=== PATIENT | female | born 1985 | race Caucasian/White ===

== ENCOUNTER 2024-07-22 10:06 | Outpatient (AMB) | payer MEDICAID, SELFPAY ==
[2024-07-22 10:41] VITALS: BP 124/79; PULSE 67; RESP 18; TEMP 36.8; O2SAT 95; BMI 40.3
--- NOTE | 2024-07-22 10:41 | ACNOTE_ITS ---
Vital Signs 07/22/24 10:41 Height 1.55 m Height Method Stated Weight 96.842 kg Weight Measurement Method Standing Scale BMI 40.3 BP 124/79 Blood Pressure Source Automatic Cuff Blood Pressure Location Right Upper Arm Position Sitting Respiration 18 Pulse 67 Pulse Source Monitor Temp 98.2 F Temp Source Temporal Artery Scan Pulse Oximetry (%) 95 Oxygen Delivery Method Room Air Allergies/Meds Allergies & Medications Allergies No Known Allergies Allergy (Verified 07/22/24 10:41) Medication Reconciliation No Known Home Medications 07/22/24 [History Confirmed 07/22/24] MA Intake Visit Data Collection New Patient or Established: New Patient (never been to [facility]) Seen by Clinical Staff ONLY (RN/MA): No Pain Present Currently: No Pain scale:: 0 Pain Scale Used: ZarcoAleksandr/Numerical Chemical Plant Worker Required: No PCP or OBGYN visit in last 3 months: No Hx Now: No Do You Feel Safe at Home: Yes Authorities Contacted: N/A Smoking Status Smoking Status: Never smoker Immunization / Flu Flu Vaccine in the Last 12 Months: No Flu Vaccine Exclusion Criteria: No Exclusion Criteria Past Medical History Social History SMOKING STATUS: Smoking status: Never smoker Patient Portal Questionaires Social History Tobacco History Smoking Status: Never smoker Domestic Abuse History Do You Feel Safe at Home: Yes Review of Systems Report any current symptoms Only answer those that you have currently: Past Medical History Past Medical History Have you ever been diagnosed with any of the following: History of Present Illness HPI Narrative This is a 39-year-old female with no past medical history who came to the [facility] to establish care as a new patient. Blood pressure in the office 124/79, heart rate 67 saturating 100% on room air, with BMI in the 40s. Patient has no active complaints however she does have family history of diabetes, hypertension would like to establish care to prevent complications from these chronic diseases. Ordered CBC, CMP, TSH, lipid panel, A1c and will see the patient in 1 week for follow-up. Objective/Exam Narrative Physical exam: Physical Exam GENERAL: NAD, AAOx3, obese HEENT: Moist mucosa. Eyes open, symmetrical, & clear CARDIO: Heart RRR, no obvious murmurs PULM: No noted coughing/dyspnea CTA B/L, no R/W/R GI: Abdomen soft, nondistended, no pain on palpation. BSx4 SKIN/MSK/EXT: No wounds/rashes/edema/amputations, no pain on palpation. Pedal pulses present B/L NEURO: AAOx3, no focal neuro deficits, able to move all 4 extremities Assessment & Plan Diagnosis / Problem List (1) Encounter to establish care: Status: Acute Plan: Ordered CBC, CMP, lipid panel, TSH, A1c will follow-up with 1 week for results. Orders: Orders Comprehensive Metabolic Panel Today Z76.89 - Persons encountering health services in other specified circumstances Ambulatory Hemoglobin A1C Today Z76.89 - Persons encountering health services in other specified circumstances CBC Today Z76.89 - Persons encountering health services in other specified circumstances Lipid Panel Today Z76.89 - Persons encountering health services in other specified circumstances Thyroid Stimulating Hormone Today Z76.89 - Persons encountering health services in other specified circumstances Office Procedures [facility] Level of Care Nursing/Assessment Patient Status: Initial/New Patient Nursing Assessment/Reassessment: Medication Reconciliation, Update PMH in EMR and Vital Signs Coordination of Care: Complex Care and Chronic Disease 1-5, Consent,records obtained, informed consent, Education Simp Pt/Fam, Lab and Imaging orders and Staff clarify orders New Patient Charge New Patient Point Assignment: 1099 New Patient Point Charge: HEADING REPAIRER Level 3 ([id number])
== END 2024-07-22 11:27 | disposition home or self-care (01) ==
LOC: HODAHC 10:06
PROVIDERS: Supervising Provider Internal Medicine; Visit Provider Student in an Organized Health Care Education/Training Program
DX: Z76.89 Persons encountering health services in other specified circumstances (principal); Z83.3 Family history of diabetes mellitus; Z82.49 Family history of ischemic heart disease and other diseases of the circulatory system; E66.9 Obesity, unspecified; Z68.41 Body mass index [BMI] 40.0-44.9, adult
CPT/HCPCS: 99203; G0463

== ENCOUNTER 2024-07-29 11:05 | Outpatient (AMB) | payer MEDICAID, SELFPAY ==
[2024-07-29 11:08] VITALS: BP 119/74; PULSE 74; RESP 18; TEMP 36.8; O2SAT 98; BMI 40.4
--- NOTE | 2024-07-29 11:08 | ACNOTE_ITS ---
Vital Signs 07/29/24 11:08 Height 1.55 m Height Method Stated Weight 97.182 kg Weight Measurement Method Standing Scale BMI 40.4 BP 119/74 Blood Pressure Source Automatic Cuff Blood Pressure Location Right Upper Arm Position Sitting Respiration 18 Pulse 74 Pulse Source Monitor Temp 98.2 F Temp Source Temporal Artery Scan Pulse Oximetry (%) 98 Oxygen Delivery Method Room Air Allergies/Meds Allergies & Medications Allergies No Known Allergies Allergy (Verified 07/29/24 11:09) Medication Reconciliation tirzepatide (weight loss) 2.5 mg/0.5 mL subcutaneous pen injector (Zepbound) 2.5 mg (0.5 mL) subcut QWEEK 1 month #2.5 mL 07/29/24 [Rx] triamcinolone acetonide 0.5 % topical cream 1 applic topical QDAY #15 grams 07/29/24 [Rx] MA Intake Visit Data Collection New Patient or Established: Established Patient (seen at [facility] within 3 years) Seen by Clinical Staff ONLY (RN/MA): No Pain Present Currently: No Pain scale:: 0 Pain Scale Used: Zarco-Lehman/Numerical Aoc Director Combat Operations Officer Required: No PCP or OBGYN visit in last 3 months: No Hx Now: No Do You Feel Safe at Home: Yes Authorities Contacted: N/A Smoking Status Smoking Status: Never smoker Immunization / Flu Flu Vaccine in the Last 12 Months: No Flu Vaccine Exclusion Criteria: No Exclusion Criteria Past Medical History Social History SMOKING STATUS: Smoking status: Never smoker Patient Portal Questionaires Social History Tobacco History Smoking Status: Never smoker Domestic Abuse History Do You Feel Safe at Home: Yes Review of Systems Report any current symptoms Only answer those that you have currently: Past Medical History Past Medical History Have you ever been diagnosed with any of the following: History of Present Illness HPI Narrative This is a 39-year-old female with no past medical history who came to the [facility] to establish care as a new patient. Blood pressure in the office 124/79, heart rate 67 saturating 100% on room air, with BMI in the 40s. Patient has no active complaints however she does have family history of diabetes, hypertension would like to establish care to prevent complications from these chronic diseases. Ordered CBC, CMP, TSH, lipid panel, A1c and will see the patient in 1 week for follow-up. 07/29/2024: Patient here for follow-up visit at the [facility]. Vitals and labs reviewed noted the patient is prediabetic with an A1c of 6.4 and has BMI above 40 shared decision making was made with the patient was presented with options as patient has already tried diet and exercise we will prescribe Zepbound 2.5 weekly. Additionally patient has a rash in the right upper extremity on the thumb scaly and Plake like partially treated differentials include eczema versus psoriasis will prescribe triamcinolone 5% topical and will reevaluate in 1 month for improvement of rash and weight loss. Objective/Exam Narrative Physical exam: Physical Exam GENERAL: NAD, AAOx3, obese, BMI>40 HEENT: Moist mucosa. Eyes open, symmetrical, & clear CARDIO: Heart RRR, no obvious murmurs PULM: No noted coughing/dyspnea CTA B/L, no R/W/R GI: Abdomen soft, nondistended, no pain on palpation. BSx4 SKIN/MSK/EXT: No wounds/rashes/edema/amputations, no pain on palpation. Pedal pulses present B/L NEURO: AAOx3, no focal neuro deficits, able to move all 4 extremities Assessment & Plan Diagnosis / Problem List (1) Psoriasis: Status: Acute Plan: ddx includes eczema vs psoriasis as patients rash is partially treated rash is plaquy, flaky, itchy used to be in B/L UE, now localized to RUE in the thumb region will treat as psoriasis at this time with triamcinolone5% topical (2) Pre-diabetes: Status: Acute Plan: Patient with A1c of 6.4, and BMI> 40 Patient is adherent to exercise and diet, however has not had much improvement in BMI, given the patients family history with diabetes and other comorbidities and refractory to diet and exercise will prescribe Zepbound 2.5 for 1 month and will reevaluate if tolerated. Office Procedures [facility] Level of Care Nursing/Assessment Patient Status: Established Patient Nursing Assessment/Reassessment: Medication Reconciliation, Update PMH in EMR and Vital Signs Coordination of Care: Complex Care and Chronic Disease 1-5, Consent,records obtained, informed consent, Education Simp Pt/Fam, Results/Orders obtained and Staff clarify orders Established Patient Charge Established Patient Point Assignment: 90 Established Patient Point Charge: Level 3 (80-115)
== END 2024-07-29 11:57 | disposition home or self-care (01) ==
LOC: HODAHC 11:05
PROVIDERS: Supervising Provider Internal Medicine; Visit Provider Student in an Organized Health Care Education/Training Program
DX: R73.03 Prediabetes (principal); L40.9 Psoriasis, unspecified
CPT/HCPCS: 99213; G0463

== ENCOUNTER 2024-09-20 14:53 | Outpatient (AMB) | payer MEDICAID, SELFPAY ==
[2024-09-20 15:00] VITALS: BP 132/84; PULSE 72; RESP 19; TEMP 36.7; O2SAT 96; BMI 37.8
--- NOTE | 2024-09-20 15:00 | PD.RESCLINIC ---
Vital Signs 09/20/24 15:00 Height 1.55 m Height Method Stated Weight 90.832 kg Weight Measurement Method Standing Scale BMI 37.8 BP 132/84 H Blood Pressure Source Automatic Cuff Blood Pressure Location Right Upper Arm Position Sitting Respiration 19 Pulse 72 Pulse Source Monitor Temp 98.0 F Temp Source Temporal Artery Scan Pulse Oximetry (%) 96 Oxygen Delivery Method Room Air Allergies/Meds Allergies & Medications Allergies No Known Allergies Allergy (Verified 07/29/24 11:09) MA Intake Visit Data Collection New Patient or Established: Established Patient (seen at [facility] [place] within 3 years) Seen by Clinical Staff ONLY (RN/MA): No Reason for Visit:: FOLLOW UP Pain Present Currently: No Auto Winder Required: No PCP or OBGYN visit in last 3 months: Yes Date of Last PCP or OBGYN visit: 07/29/24 Do You Feel Safe at Home: Yes Authorities Contacted: N/A Smoking Status Smoking Status: Never smoker Immunization / Flu Flu Vaccine in the Last 12 Months: Yes Flu Vaccine Exclusion Criteria: Already Received Past Medical History Social History SMOKING STATUS: Smoking status: Never smoker Travel Risk Travel Hx Recent Travel: No Patient Portal Questionaires Social History Tobacco History Smoking Status: Never smoker Domestic Abuse History Do You Feel Safe at Home: Yes Review of Systems Report any current symptoms Only answer those that you have currently: Past Medical History Past Medical History Have you ever been diagnosed with any of the following: History of Present Illness HPI Narrative This is a 39-year-old female with no past medical history who came to the [facility] to establish care as a new patient. Blood pressure in the office 124/79, heart rate 67 saturating 100% on room air, with BMI in the 40s. Patient has no active complaints however she does have family history of diabetes, hypertension would like to establish care to prevent complications from these chronic diseases. Ordered CBC, CMP, TSH, lipid panel, A1c and will see the patient in 1 week for follow-up. 07/29/2024: Patient here for follow-up visit at the [facility]. Vitals and labs reviewed noted the patient is prediabetic with an A1c of 6.4 and has BMI above 40 shared decision making was made with the patient was presented with options as patient has already tried diet and exercise we will prescribe Zepbound 2.5 weekly. Additionally patient has a rash in the right upper extremity on the thumb scaly and Plake like partially treated differentials include eczema versus psoriasis will prescribe triamcinolone 5% topical and will reevaluate in 1 month for improvement of rash and weight loss. 09/20/2024 : pt is seen for followup, reported no active complaints, on Trizepetide 2.5 mg. tolerated well, 14 lb weight loss acheived in one month , reported improvement in energy levels, excited to advance dose to next step. will send a prescription for 5mg, weekly. Pt is also working on pursuing an active lifestyle, joined a gym and goes for workout more frequently now. Will followup with a1c in 6 months. No abdominal pain, chest pain or dyspnea reported. Review of Systems Review of Systems Narrative Review of Systems: General: Denies fevers or chills HEENT: Denies congestion or sore throat Heart: Denies chest pain or palpitations Lungs: Denies shortness of breath or cough Abdomen: Denies diarrhea, nausea, vomiting, constipation, bright red blood per rectum or melena Genitourinary: Denies frequency, urgency, dysuria, or hematuria Musculoskeletal: Denies joint pain, denies muscular pain Neurology: Denies any numbness, tingling Review of systems otherwise negative except what is mentioned above. Objective/Exam Narrative Physical exam: Physical Exam GENERAL: NAD, AAOx3, obese, HEENT: Moist mucosa. Eyes open, symmetrical, & clear CARDIO: Heart RRR, no obvious murmurs PULM: No noted coughing/dyspnea CTA B/L, no R/W/R GI: Abdomen soft, nondistended, no pain on palpation. BSx4 SKIN/MSK/EXT: No wounds/rashes/edema/amputations, no pain on palpation. Pedal pulses present B/L NEURO: AAOx3, no focal neuro deficits, able to move all 4 extremities Assessment & Plan Diagnosis / Problem List (1) Pre-diabetes: Status: Acute Plan: Patient with A1c of 6.4, and BMI> 40 Patient is adherent to exercise and diet, however has not had much improvement in BMI, given the patients family history with diabetes and other comorbidities and refractory to diet and exercise will prescribe Zepbound 2.5 for 1 month and will reevaluate if tolerated. Improvemnt in weight, 14lb weight loss acheived, tolerated medicne well, will increase dose to 5 mg weekly, counselled regarding increase risk of pancreatitis and abdominal symptoms, pt is aware and continues to stay abstinant from alcohol. BMI now 37.8 (2) BMI greater than 40: Status: Acute (3) Psoriasis: Status: Acute Plan: ddx includes eczema vs psoriasis as patients rash is partially treated rash is plaquy, flaky, itchy used to be in B/L UE, now localized to RUE in the thumb region will treat as psoriasis at this time with triamcinolone5% topical reported improvement in symtoms, rash now clearing up, no scaly patches noted, pink erythematous skin, that is not itchy. on dosral aspect of both hand close to thumbs. - continue with triamcinolone5% topical Plan Plan of care discussed with attending dr Kelle Diaz pgy 3 Office Procedures [facility] Level of Care Nursing/Assessment Patient Status: Established Patient Nursing Assessment/Reassessment: BP Monitoring, Medication Reconciliation, Update PMH in EMR and Vital Signs Coordination of Care: Complex Care and Chronic Disease 1-5, Consent,records obtained, informed consent, Lab and Imaging orders and Results/Orders obtained Established Patient Charge Established Patient Point Assignment: 95 Established Patient Point Charge: EP Level 3 (80-115)
== END 2024-09-20 15:13 | disposition home or self-care (01) ==
LOC: HODAHC 14:53
PROVIDERS: Supervising Provider Student in an Organized Health Care Education/Training Program; Visit Provider Student in an Organized Health Care Education/Training Program
DX: R73.03 Prediabetes (principal); L40.9 Psoriasis, unspecified; Z83.3 Family history of diabetes mellitus
CPT/HCPCS: 99213; G0463

== ENCOUNTER 2024-10-27 15:02 | Outpatient (AMB) | payer MEDICAID, SELFPAY ==
[2024-10-27 15:15] VITALS: BP 127/89; PULSE 71; RESP 19; TEMP 36.8; O2SAT 96; BMI 36.4
--- NOTE | 2024-10-27 15:15 | PD.RESCLINIC ---
Vital Signs 10/27/24 15:15 Height 1.55 m Height Method Stated Weight 87.6 kg Weight Measurement Method Standing Scale BMI 36.4 BP 127/89 H Blood Pressure Source Automatic Cuff Blood Pressure Location Right Upper Arm Position Sitting Respiration 19 Pulse 71 Pulse Source Monitor Temp 98.2 F Temp Source Temporal Artery Scan Pulse Oximetry (%) 96 Oxygen Delivery Method Room Air Allergies/Meds Allergies & Medications Allergies No Known Allergies Allergy (Verified 07/29/24 11:09) MA Intake Visit Data Collection New Patient or Established: Established Patient (seen at [facility] within 3 years) Seen by Clinical Staff ONLY (RN/MA): No Reason for Visit:: FOLLOW UP Digital Color Press Operator Required: No PCP or OBGYN visit in last 3 months: Yes Date of Last PCP or OBGYN visit: 09/20/24 Hx Now: No Do You Feel Safe at Home: Yes Authorities Contacted: N/A Smoking Status Smoking Status: Never smoker Immunization / Flu Flu Vaccine in the Last 12 Months: No Flu Vaccine Exclusion Criteria: No Exclusion Criteria Past Medical History Social History SMOKING STATUS: Smoking status: Never smoker Patient Portal Questionaires Social History Tobacco History Smoking Status: Never smoker Domestic Abuse History Do You Feel Safe at Home: Yes Review of Systems Report any current symptoms Only answer those that you have currently: Past Medical History Past Medical History Have you ever been diagnosed with any of the following: History of Present Illness HPI Narrative 39-year-old female with past medical history of morbid obesity with assosiated prediabetes and family history of autoimmune disorder (lupus and psoriasis in mother) who has recenttly been started of GLP-1 treatment for diabetes and obesity. Patient states that she has been asymptomatic and denies any concerning GI symptoms. She is satisfied with the rate of her weight loss and would like to increase her Tirzepatide dose. She also had a rash on her bilateral thumbs on last visit which was treated with Triamcinolone 0.5% with improvement in the rash but no complete resolution. She otherwise denies any concerning symptoms and feels generally well. Objective/Exam Narrative Physical exam: Physical Exam: GENERAL: NAD, AAOx3, obese, HEENT: Moist mucosa. Eyes open, symmetrical, & clear CARDIO: Heart RRR, no obvious murmurs PULM: No noted coughing/dyspnea CTA B/L, no R/W/R GI: Abdomen soft, nondistended, no pain on palpation. BSx4 SKIN/MSK/EXT: Bilateral hypopigemented 2 cm skin lesions on thumbs. No wounds/edema/amputations, no pain on palpation. NEURO: AAOx3, no focal neuro deficits, able to move all 4 extremities Assessment & Plan Diagnosis / Problem List (1) Pre-diabetes: Status: Acute Assessment & Plan: Patient with A1c of 6.4, and BMI> 40 On Zepbound 5mg, tolerating well BMI improved to 36.4; has additional 3kg of weight loss since last visit Plan: Will increase Zepbound to 7.5mg and follow-up with repeat A1c (2) BMI greater than 40: Status: Acute Assessment & Plan: As above (3) Psoriasis: Status: Acute Assessment & Plan: Initial differentials included eczema, psoriasis Hx of autoimmune disease in family; can't rule out Vitilgo Rash was initially plaquy, flaky, itchy and B/L - currently hypopigmented with no scaly plaque Treated effectively with Triamcinolone cream Plan: Continue Triamcinolone Will order autoimmune workup and follow-up on next visit Orders: Orders DNA (ds) Antibody* Today L40.9 - Psoriasis, unspecified CHRIS IFA Screen w/refl, IFA* Today L40.9 - Psoriasis, unspecified ANCA Scrn,MPO&PR3,Rflx Titer* Today L40.9 - Psoriasis, unspecified Ambulatory Hemoglobin A1C Today R73.03 - Prediabetes Office Procedures [facility] Level of Care Nursing/Assessment Patient Status: Established Patient Nursing Assessment/Reassessment: Medication Reconciliation, Update PMH in EMR and Vital Signs Coordination of Care: Complex Care and Chronic Disease 1-5, Consent,records obtained, informed consent, Lab and Imaging orders and Results/Orders obtained Established Patient Charge Established Patient Point Assignment: 80 Established Patient Point Charge: Level 3 (80-115)
== END 2024-10-27 16:06 | disposition home or self-care (01) ==
LOC: HODAHC 15:02
DX: R73.03 Prediabetes (principal); E66.01 Morbid (severe) obesity due to excess calories; Z68.36 Body mass index [BMI] 36.0-36.9, adult; L40.9 Psoriasis, unspecified
CPT/HCPCS: 99213; G0463

== ENCOUNTER 2024-12-07 13:21 | Outpatient (AMB) | payer MEDICAID, SELFPAY ==
[2024-12-07 13:32] VITALS: BP 129/88; PULSE 77; RESP 17; TEMP 37; O2SAT 97; BMI 35.7
--- NOTE | 2024-12-07 13:32 | ACNOTE_ITS ---
Vital Signs 12/07/24 13:32 Height 1.55 m Height Method Stated Weight 85.842 kg Weight Measurement Method Standing Scale BMI 35.7 BP 129/88 H Blood Pressure Source Automatic Cuff Blood Pressure Location Right Upper Arm Position Sitting Respiration 17 Pulse 77 Pulse Source Monitor Temp 98.6 F Temp Source Temporal Artery Scan Pulse Oximetry (%) 97 Oxygen Delivery Method Room Air Allergies/Meds Allergies & Medications Allergies No Known Allergies Allergy (Verified 12/07/24 13:33) Medication Reconciliation tirzepatide (weight loss) 10 mg/0.5 mL subcutaneous pen injector (Zepbound) 10 m g (0.5 mL) subcut QWEEK #2 mL 12/07/24 [Rx] triamcinolone acetonide 0.5 % topical cream 1 applic topical QDAY #15 grams 12/07/24 [Rx] MA Intake Visit Data Collection New Patient or Established: Established Patient (seen at [facility] within 3 years) Seen by Clinical Staff ONLY (RN/MA): No Reason for Visit:: FOLLOW UP Pain scale:: 0 Pain Scale Used: Zarco-Lehman/Numerical [employer] Installer Required: No PCP or OBGYN visit in last 3 months: Yes Date of Last PCP or OBGYN visit: 10/27/24 Hx Now: No Do You Feel Safe at Home: Yes Authorities Contacted: N/A Smoking Status Smoking Status: Never smoker Immunization / Flu Flu Vaccine in the Last 12 Months: No Flu Vaccine Exclusion Criteria: No Exclusion Criteria Past Medical History Social History SMOKING STATUS: Smoking status: Never smoker SECOND HAND EXPOSURE: second hand exposure: No ALCOHOL: Alcohol Intake: Never HOUSING: Housing: House Patient Portal Questionaires PHQ-9 PHQ-2 Over the last 2 weeks, how often have you been bothered by any of the following problems? 1. Little interest or pleasure in doing things: not at all 2. Feeling down, depressed, or hopeless: not at all Total score: 0 PHQ-9 3. Trouble falling or staying asleep, or sleeping too much: Not at all 4. Feeling tired or having little energy: Not at all 5. Poor appetite or overeating: Not at all 6. Feeling bad about yourself - or that you are a failure or have let yourself or your family down: Not at all 7. Trouble concentrating on things, such as reading the newspaper or watching television: Not at all 8. Moving or speaking so slowly that other people could have noticed? - Or the opposite - being so fidgety or restless that you have been moving around a lot more than usual: not at all 9. Thoughts that you would be better off or of hurting yourself in some way: Not at all Total score: 0 If you checked off any problems, how difficult have these problems made it for you to do your work, take care of things at home, or get along with other people?: not difficult at all Source: Developed by Drs. Prosper Verdugo, Ese Lopez, Berhane Saeed and colleagues, with an educational jack from [employer]. Depression screen completed yes Social History Living Situation History Marital Status: Unknown Lives With: Family Housing: House Tobacco History Smoking Status: Never smoker Second Hand Smoke Exposure: No Alcohol History Alcohol Intake: Never Domestic Abuse History Do You Feel Safe at Home: Yes Review of Systems Report any current symptoms Only answer those that you have currently: Past Medical History Past Medical History Have you ever been diagnosed with any of the following: History of Present Illness HPI Narrative This is a 39-year-old female with no past medical history who came to the [facility] to establish care as a new patient. Blood pressure in the office 124/79, heart rate 67 saturating 100% on room air, with BMI in the 40s. Patient has no active complaints however she does have family history of diabetes, hypertension would like to establish care to prevent complications from these chronic diseases. Ordered CBC, CMP, TSH, lipid panel, A1c and will see the patient in 1 week for follow-up. 07/29/2024: Patient here for follow-up visit at the [facility]. Vitals and labs reviewed noted the patient is prediabetic with an A1c of 6.4 and has BMI above 40 shared decision making was made with the patient was presented with options as patient has already tried diet and exercise we will prescribe Zepbound 2.5 weekly. Additionally patient has a rash in the right upper extremity on the thumb scaly and Plake like partially treated differentials include eczema versus psoriasis will prescribe triamcinolone 5% topical and will reevaluate in 1 month for improvement of rash and weight loss. 09/20/2024 : pt is seen for followup, reported no active complaints, on Trizepetide 2.5 mg. tolerated well, 14 lb weight loss acheived in one month , reported improvement in energy levels, excited to advance dose to next step. will send a prescription for 5mg, weekly. Pt is also working on pursuing an active lifestyle, joined a gym and goes for workout more frequently now. Will followup with a1c in 6 months. No abdominal pain, chest pain or dyspnea reported. 10/27/2024: 39-year-old female with past medical history of morbid obesity with assosiated prediabetes and family history of autoimmune disorder (lupus and psoriasis in mother) who has recenttly been started of GLP-1 treatment for diabetes and obesity. Patient states that she has been asymptomatic and denies any concerning GI symptoms. She is satisfied with the rate of her weight loss and would like to increase her Tirzepatide dose. She also had a rash on her bilateral thumbs on last visit which was treated with Triamcinolone 0.5% with improvement in the rash but no complete resolution. She otherwise denies any concerning symptoms and feels generally well. 12/07/2024: Patient seen for followup. Patient is doing well with Tirzepatide 7.5 mg. Patient BMI decreased from 36.4 to 35.7 and reports no known side effects with the increased dose. No labs available for this visit as the patient forgot to do labs until this morning. The patient plans to follow up with a phone call visit to go over her labs. Patient also states that she has had significant improvement of her skin rashes on her hands with the prescribed triamcinolone. Review of Systems Review of Systems Systems Reviewed: All systems reviewed, normal except as documented Objective/Exam Narrative Physical exam: Physical Exam: General: Alert, no acute distress. Skin: Warm, dry, intact. Head: Normocephalic, atraumatic. Eye: Normal conjunctiva, PERRL. Cardiovascular: Regular rate and rhythm, no murmur, +S1/S2. Respiratory: Lungs are clear to auscultation, respirations unlabored, no crackles, no wheezing. Gastrointestinal: Soft, nontender, non-distended. No guarding or rebound tenderness. Extremities: No edema, no cyanosis, no clubbing. 2cm hypopigmented plaques with punctate hemorrhage in center on skin over MCP of thumb bilaterally. Neuro: No focal deficits observed. Conversant, moving all extremities. No overt cerebellar signs/incoordination. Psychiatric: Cooperative, appropriate affect. Assessment & Plan Diagnosis / Problem List (1) Pre-diabetes: Status: Acute Assessment & Plan: Patient with A1c of 6.4 during previous visit, and presented initially with BMI> 40 Will follow up on A1c from 12/07 lab results when available On Zepbound 7.5mg, tolerating well BMI improved to 35.7 from 36.4 Plan: Will increase Zepbound to 10mg and follow-up with A1c results (2) BMI greater than 40: Status: Acute Assessment & Plan: As above; improved with Zepbound Plan: Increased Zepbound to 10 mg, will decrease back to 7.5 mg if patient not [place] ating side effects Will plan for CBC, CMP, lipid panel, TSH, and A1c next in person visit (3) Psoriasis: Status: Acute Assessment & Plan: Initial differentials included eczema, psoriasis Hx of autoimmune disease in family; can't rule out Vitilgo Rash was initially plaquy, flaky, itchy and B/L - currently hypopigmented with no scaly plaque Treated effectively with Triamcinolone cream Plan: Continue Triamcinolone Will order autoimmune workup (dsDNA, CHRIS, ANCA) and follow-up on next visit; labs not yet available on 12/07 visit, will plan to follow up next appointment Will send referral to dermatology for additional management Plan Patient plan of care was discussed with attending physician Dr. Lorena Powell, PGY1 Orders: Referrals Dermatology Escobar Powell, DO L30.9 - Dermatitis, unspecified, L40.9 - Psoriasis, unspecified Additional Assessment Attending note: Office Procedures [facility] Level of Care Nursing/Assessment Patient Status: Established Patient Nursing Assessment/Reassessment: Medication Reconciliation, Update PMH in EMR and Vital Signs Coordination of Care: Complex Care and Chronic Disease 1-5, Education Complex Pt/Fam, Consent,records obtained, informed consent, Results/Orders obtained and Staff clarify orders Established Patient Charge Established Patient Point Assignment: 95 Established Patient Point Charge: Level 3 (80-115) TB Screening LTBI Screening: Has patient traveled, was born, or resided for at least 1 month, or frequent border crossing into a country with an elevated TB rate: No Immunosuppression, current or planned (HIV, organ transplant, treated with biologic agents, steroids, or other immunosuppression medication): No Close contact to someone with infectious TB disease during lifetime: No Homelessness or incarceration, current or past: No TB testing indicated at this time (at least 1 yes above): No
== END 2024-12-07 13:44 | disposition home or self-care (01) ==
LOC: HODAHC 13:21
PROVIDERS: Supervising Provider Internal Medicine; Visit Provider Internal Medicine
DX: R73.03 Prediabetes (principal); Z79.85 Long-term (current) use of injectable non-insulin antidiabetic drugs; L40.9 Psoriasis, unspecified; E66.01 Morbid (severe) obesity due to excess calories; Z68.35 Body mass index [BMI] 35.0-35.9, adult
CPT/HCPCS: 99213; G0463

== ENCOUNTER 2025-01-11 13:41 | Outpatient (AMB) | payer MEDICAID, SELFPAY ==
[2025-01-11 13:52] VITALS: BP 135/86; PULSE 81; RESP 19; TEMP 36.4; O2SAT 97; BMI 35.2
--- NOTE | 2025-01-11 13:52 | ACNOTE_ITS ---
Vital Signs 01/11/25 13:52 Height 1.55 m Height Method Stated Weight 84.595 kg Weight Measurement Method Standing Scale BMI 35.2 BP 135/86 H Blood Pressure Source Automatic Cuff Blood Pressure Location Right Upper Arm Position Sitting Respiration 19 Pulse 81 Pulse Source Monitor Temp 97.6 F Temp Source Temporal Artery Scan Pulse Oximetry (%) 97 Oxygen Delivery Method Room Air Allergies/Meds Allergies & Medications Allergies No Known Allergies Allergy (Verified 01/11/25 13:53) Medication Reconciliation triamcinolone acetonide 0.5 % topical cream 1 applic topical QDAY #15 grams 0 04/02 [Rx Confirmed 01/11/25] tirzepatide (weight loss) 12.5 mg/0.5 mL subcutaneous pen injector (Zepbound) 12.5 mg (0.5 mL) subcut QWEEK #2 mL 01/11/25 [Rx] MA Intake Visit Data Collection New Patient or Established: Established Patient (seen at [facility] within 3 years) Seen by Clinical Staff ONLY (RN/MA): No Pain Present Currently: No Pain scale:: 0 Pain Scale Used: Zarco-Lehman/Numerical PCP or OBGYN visit in last 3 months: Yes Do You Feel Safe at Home: Yes Authorities Contacted: N/A Smoking Status Smoking Status: Never smoker Immunization / Flu Flu Vaccine in the Last 12 Months: No Flu Vaccine Exclusion Criteria: No Exclusion Criteria Past Medical History Social History SMOKING STATUS: Smoking status: Never smoker SECOND HAND EXPOSURE: second hand exposure: No ALCOHOL: Alcohol Intake: Never HOUSING: Housing: House Patient Portal Questionaires PHQ-9 PHQ-2 Over the last 2 weeks, how often have you been bothered by any of the following problems? 1. Little interest or pleasure in doing things: not at all 2. Feeling down, depressed, or hopeless: not at all Total score: 0 PHQ-9 8. Moving or speaking so slowly that other people could have noticed? - Or the opposite - being so fidgety or restless that you have been moving around a lot more than usual: not at all Source: Developed by Drs. Prosper Verdugo, Ese Lopez, Berhane Saeed and colleagues, with an educational jack from [employer]. Social History Living Situation History Lives With: Family Housing: House Tobacco History Smoking Status: Never smoker Second Hand Smoke Exposure: No Alcohol History Alcohol Intake: Never Domestic Abuse History Do You Feel Safe at Home: Yes Review of Systems Report any current symptoms Only answer those that you have currently: Past Medical History Past Medical History Have you ever been diagnosed with any of the following: History of Present Illness HPI Narrative HPI Narrative This is a 39-year-old female with no past medical history who came to the [facility] to establish care as a new patient. Blood pressure in the office 124/79, heart rate 67 saturating 100% on room air, with BMI in the 40s. Patient has no active complaints however she does have family history of diabetes, hypertension would like to establish care to prevent complications from these chronic diseases. Ordered CBC, CMP, TSH, lipid panel, A1c and will see the patient in 1 week for follow-up. 07/29/2024: Patient here for follow-up visit at the [facility]. Vitals and labs reviewed noted the patient is prediabetic with an A1c of 6.4 and has BMI above 40 shared decision making was made with the patient was presented with options as patient has already tried diet and exercise we will prescribe Zepbound 2.5 weekly. Additionally patient has a rash in the right upper extremity on the thumb scaly and Plake like partially treated differentials include eczema versus psoriasis will prescribe triamcinolone 5% topical and will reevaluate in 1 month for improvement of rash and weight loss. 09/20/2024 : pt is seen for followup, reported no active complaints, on Trizepetide 2.5 mg. tolerated well, 14 lb weight loss acheived in one month , reported improvement in energy levels, excited to advance dose to next step. will send a prescription for 5mg, weekly. Pt is also working on pursuing an acti ve lifestyle, joined a gym and goes for workout more frequently now. Will followup with a1c in 6 months. No abdominal pain, chest pain or dyspnea reported. 10/27/2024: 39-year-old female with past medical history of morbid obesity with assosiated prediabetes and family history of autoimmune disorder (lupus and psoriasis in mother) who has recenttly been started of GLP-1 treatment for diabetes and obesity. Patient states that she has been asymptomatic and denies any concerning GI symptoms. She is satisfied with the rate of her weight loss and would like to increase her Tirzepatide dose. She also had a rash on her bilateral thumbs on last visit which was treated with Triamcinolone 0.5% with improvement in the rash but no complete resolution. She otherwise denies any concerning symptoms and feels generally well. 12/07/2024: Patient seen for followup. Patient is doing well with Tirzepatide 7.5 mg. Patient BMI decreased from 36.4 to 35.7 and reports no known side effects with the increased dose. No labs available for this visit as the patient forgot to do labs until this morning. The patient plans to follow up with a phone call visit to go over her labs. Patient also states that she has had significant improvement of her skin rashes on her hands with the prescribed triamcinolone. 01/11/2025: Patient seen in the office today for follow-up of her lab results from 12/28/2024. Notable labs included an A1c of 5.5 improved from 6.4. She is CHRIS positive speckled pattern 1:160. Patient is doing well with Zepbound 10 at home. She also reports improvement in her rash on the bilateral dorsal surfaces of her thumbs. Review of Systems Review of Systems Narrative Review of Systems: Review of Systems: * General: Denies fevers, chills. * HEENT: Denies headache, congestion, or sore throat. * Cardiac: Denies chest pain or palpitations. * Pulmonary: Denies shortness of breath or cough. * GI: Denies nausea, vomiting, diarrhea, constipation, melena, or hematochezia. * : Denies dysuria, hematuria, frequency, or urgency. * MSK: Pruritus on the dorsal surfaces of the thumbs bilaterally. Denies pain in the extremities, joints, or myalgias. * Neuro: Denies weakness, numbness, vision changes, or speech difficulty. Objective/Exam Narrative Physical exam: General: Awake and in no acute distress. Conversational and non-toxic appearing. Neurologic: GCS 15. Alert and oriented x3, no gross neurological deficit, and patient able to move all 4 extremities. HEENT: Normocephalic, atraumatic, mucous membranes moist. Pupils reactive to light. Heart: Regular rate and rhythm, normal S1 and S2, no murmurs. Lungs: Clear to auscultation bilaterally with no wheezing or crackles. Abdomen: Soft, nondistended, nontender, positive bowel sounds. No guarding or rebound tenderness. Extremities: Approximately 2 cm in diameter scaly rash on the dorsal surfaces of the thumbs bilaterally. Associated flaking. No edema in the extremities. 2+ radial and dorsalis pedis pulses bilaterally. Skin: Warm. Dry. No rash or ecchymoses. Assessment & Plan Diagnosis / Problem List (1) Psoriasis: Status: Acute (2) Eczema: Status: Acute (3) Pre-diabetes: Status: Acute (4) Morbid obesity: Status: Acute Plan 39-year-old female with no significant past medical history but a family history of diabetes and hypertension coming in for follow-up of her lab results and her rash. She is currently on Zepbound and using a topical triamcinolone for her rash on her hands. #Prediabetes (Resolved) #Obesity * Patient previously had an A1c of 6.4, now 5.5 most recently * Patient's BMI was over 40, currently 35.2 * Patient is tolerating Zepbound 10mg well Plan: * Will increase Zepbound to 12mg #Psoriasis versus eczema * Patient has a approximately 2 cm diameter scaly rash on the bilateral dorsal surface of her thumbs * Has improved in size and has become less pruritic with topical triamcinolone * Patient is CHRIS positive Plan: * Considering that 20% of females are CHRIS positive, will not explore further workup * Will continue topical triamcinolone Patient was seen and discussed with my attending physician Dr. Lorena MANTILLA. Jessee Steele DO PGY-1. Office Procedures [facility] Level of Care Nursing/Assessment Patient Status: Established Patient Nursing Assessment/Reassessment: Medication Reconciliation, Update PMH in EMR and Vital Signs Coordination of Care: Complex Care and Chronic Disease 1-5, Complex Care/Chronic Disease 5 or more, Consent,records obtained, informed consent, Lab and Imaging orders, Results/Orders obtained and Staff clarify orders Established Patient Charge Established Patient Point Assignment: 125 Established Patient Point Charge: EP Level 4 (120-155)
== END 2025-01-11 14:51 | disposition home or self-care (01) ==
LOC: HODAHC 13:41
DX: R21 Rash and other nonspecific skin eruption (principal); R76.0 Raised antibody titer; E66.01 Morbid (severe) obesity due to excess calories; Z68.35 Body mass index [BMI] 35.0-35.9, adult; Z83.3 Family history of diabetes mellitus; I10 Essential (primary) hypertension
CPT/HCPCS: 99214; G0463

== ENCOUNTER 2025-02-08 13:16 | Outpatient (AMB) | payer MEDICAID, SELFPAY ==
--- NOTE | 2025-02-08 13:36 | PD.RESCLINIC ---
Vital Signs 02/08/25 13:37 Height 1.55 m Height Method Stated Weight 82.27 kg Weight Measurement Method Standing Scale BMI 34.2 BP 134/89 H Blood Pressure Source Automatic Cuff Blood Pressure Location Left Upper Arm Position Sitting Respiration 18 Pulse 73 Pulse Source Monitor Temp 97.2 F Temp Source Temporal Artery Scan Pulse Oximetry (%) 98 Oxygen Delivery Method Room Air Allergies/Meds Allergies & Medications Allergies No Known Allergies Allergy (Verified 02/08/25 13:37) Medication Reconciliation triamcinolone acetonide 0.5 % topical cream 1 applic topical QDAY #15 grams 12/07/24 [Rx Confirmed 02/08/25] tirzepatide (weight loss) 12.5 mg/0.5 mL subcutaneous pen injector (Zepbound) 15 mg (0.6 mL) subcut QWEEK #2 mL 02/08/25 [Rx] MA Intake Visit Data Collection New Patient or Established: Established Patient (seen at [facility] within 3 years) PCP or OBGYN visit in last 3 months: No Smoking Status Smoking Status: Never smoker Immunization / Flu Flu Vaccine in the Last 12 Months: No Flu Vaccine Exclusion Criteria: No Exclusion Criteria Past Medical History Social History SMOKING STATUS: Smoking status: Never smoker SECOND HAND EXPOSURE: second hand exposure: No ALCOHOL: Alcohol Intake: Never HOUSING: Housing: House Patient Portal Questionaires PHQ-9 PHQ-2 Over the last 2 weeks, how often have you been bothered by any of the following problems? 1. Little interest or pleasure in doing things: not at all PHQ-9 8. Moving or speaking so slowly that other people could have noticed? - Or the opposite - being so fidgety or restless that you have been moving around a lot more than usual: not at all Source: Developed by Drs. Prosper Verdugo, Ese Lopez, Berhane Saeed and colleagues, with an educational jack from [employer]. Social History Living Situation History Lives With: Family Housing: House Tobacco History Smoking Status: Never smoker Second Hand Smoke Exposure: No Alcohol History Alcohol Intake: Never Review of Systems Report any current symptoms Only answer those that you have currently: Past Medical History Past Medical History Have you ever been diagnosed with any of the following: History of Present Illness HPI Narrative This is a 39-year-old female with no past medical history who came to the [facility] to establish care as a new patient. Blood pressure in the office 124/79, heart rate 67 saturating 100% on room air, with BMI in the 40s. Patient has no active complaints however she does have family history of diabetes, hypertension would like to establish care to prevent complications from these chronic diseases. Ordered CBC, CMP, TSH, lipid panel, A1c and will see the patient in 1 week for follow-up. 07/29/2024: Patient here for follow-up visit at the [facility]. Vitals and labs reviewed noted the patient is prediabetic with an A1c of 6.4 and has BMI above 40 shared decision making was made with the patient was presented with options as patient has already tried diet and exercise we will prescribe Zepbound 2.5 weekly. Additionally patient has a rash in the right upper extremity on the thumb scaly and Plake like partially treated differentials include eczema versus psoriasis will prescribe triamcinolone 5% topical and will reevaluate in 1 month for improvement of rash and weight loss. 09/20/2024 : pt is seen for followup, reported no active complaints, on Trizepetide 2.5 mg. tolerated well, 14 lb weight loss acheived in one month , reported improvement in energy levels, excited to advance dose to next step. will send a prescription for 5mg, weekly. Pt is also working on pursuing an active lifestyle, joined a gym and goes for workout more frequently now. Will followup with a1c in 6 months. No abdominal pain, chest pain or dyspnea reported. 10/27/2024: 39-year-old female with past medical history of morbid obesity with assosiated prediabetes and family history of autoimmune disorder (lupus and psoriasis in mother) who has recenttly been started of GLP-1 treatment for diabetes and obesity. Patient states that she has been asymptomatic and denies any concerning GI symptoms. She is satisfied with the rate of her weight loss and would like to increase her Tirzepatide dose. She also had a rash on her bilateral thumbs on last visit which was treated with Triamcinolone 0.5% with improvement in the rash but no complete resolution. She otherwise denies any concerning symptoms and feels generally well. 12/07/2024: Patient seen for followup. Patient is doing well with Tirzepatide 7.5 mg. Patient BMI decreased from 36.4 to 35.7 and reports no known side effects with the increased dose. No labs available for this visit as the patient forgot to do labs until this morning. The patient plans to follow up with a phone call visit to go over her labs. Patient also states that she has had significant improvement of her skin rashes on her hands with the prescribed triamcinolone. 01/11/2025: Patient seen in the office today for follow-up of her lab results from 12/28/2024. Notable labs included an A1c of 5.5 improved from 6.4. She is CHRIS positive speckled pattern 1:160. Patient is doing well with Zepbound 10 at home. She also reports improvement in her rash on the bilateral dorsal surfaces of her thumbs. 02/08/2025: Patient seen in the office today. Patient is doing well with Zepbound 12.5 and she did not get her last dose and planning to take that last 12.5 dose today. She last 2 KG from last visit. Otherwise she has been doing well. And her rash over the right thumb and left hand improved a little from the last time but improved overall the initial visit. Plan for her is to increase her Zepbound to the final 15 mg dosage and to review the HbA1c on next visit. She is doing well with the exercise and caloric cutting. Advised her to continue the same Objective/Exam Narrative Physical exam: General: Awake and in no acute distress. Conversational and non-toxic appearing. Neurologic: GCS 15. Alert and oriented x3, no gross neurological deficit, and patient able to move all 4 extremities. HEENT: Normocephalic, atraumatic, mucous membranes moist. Pupils reactive to light. Heart: Regular rate and rhythm, normal S1 and S2, no murmurs. Lungs: Clear to auscultation bilaterally with no wheezing or crackles. Abdomen: Soft, nondistended, nontender, positive bowel sounds. No guarding or rebound tenderness. Extremities: Approximately 2 cm in diameter scaly rash on the dorsal surfaces of the thumbs bilaterally. No edema in the extremities. 2+ radial and dorsalis pedis pulses bilaterally. Skin: Warm. Dry. No rash or ecchymoses. Assessment & Plan Diagnosis / Problem List (1) Morbid obesity: Status: Acute Assessment & Plan: He is currently on Zepbound 12.5 and then due for the last shot and significantly high weight is decreased by 2 to KG from her last visit. She denies any GI upset or any other complaints from the the bone usage and she has been compliant with the exercise and calorie cutting. Plan: Plan for her is to increase her Zepbound dose to 15 mg and the final dose for the 4 weeks and to review her HbA1c after final Zepbound dose in the next visit. (2) Psoriasis: Status: Acute Assessment & Plan: Her bilateral lesions over the thumbs showing no worsening. They have been slightly improved. She says that it has been significantly improved from the initial visit. Plan: Continue the same management of triamcinolone (3) Pre-diabetes: Status: Acute Assessment & Plan: Her HbA1c on last visit is 5.4 which is decreased from 6.6 from the initial visit. She has been losing weight from Zepbound, exercise, diet Plan: Continue the same management. ?Advised her on healthy life style. Orders: Orders Ambulatory Hemoglobin A1C 03/21/25 Lesvia Lizarraga MD E66.01 - Morbid (severe) obesity due to excess calories Office Procedures [facility] Level of Care Nursing/Assessment Patient Status: Established Patient Nursing Assessment/Reassessment: Medication Reconciliation, Update PMH in EMR and Vital Signs Coordination of Care: Complex Care and Chronic Disease 1-5 and Education Complex Pt/Fam Established Patient Charge Established Patient Point Assignment: 75 Established Patient Point Charge: EP Level 2 (40-75)
[2025-02-08 13:37] VITALS: BP 134/89; PULSE 73; RESP 18; TEMP 36.2; O2SAT 98; BMI 34.2
== END 2025-02-08 15:35 | disposition home or self-care (01) ==
LOC: HODAHC 13:16
PROVIDERS: Supervising Provider Internal Medicine
DX: E66.01 Morbid (severe) obesity due to excess calories (principal); Z68.34 Body mass index [BMI] 34.0-34.9, adult; L40.9 Psoriasis, unspecified; R73.03 Prediabetes
CPT/HCPCS: 99212; G0463